=== PATIENT | male | born 1980 | race Caucasian/White ===

== ENCOUNTER 2016-07-16 20:11 | Emergency (ER) | payer OTHER ==
[~2016-07-16] VITALS: Ht 177.8 cm; Wt 99.0 kg
[2016-07-16 20:18] VITALS: Ht 177.8 cm; Wt 99.0 kg
[2016-07-16] MEDS ORDERED: HYDROCODONE/APAP (5/325) TAB PO ONE (21:30)
--- NOTE | 2016-07-16 21:57 | RADRPT ---
PROCEDURE: XR Ribs. CLINICAL INDICATION: Right upper rib pain. TECHNIQUE: Two views of the right ribs were obtained. COMPARISON: None. FINDINGS: No rib fracture or other focal lesion is identified. The underlying lungs are unremarkable, without pleural effusion or pneumothorax seen. RPTAT:HJJR IMPRESSION: Unremarkable right rib series. Physician Nasrin Date Time Electronically viewed and signed by Rodney Diehl Physician on 07/16/2016 21:57 /
[2016-07-16] MEDS ORDERED: TYL500 PO (22:30)
[2016-07-16 22:37] VITALS: BP 135/93; PULSE 80; RESP 20; TEMP 98.2
--- NOTE | 2016-07-18 06:20 | ERA ---
ER Documentation Chief Complaint Date/Time DATE: 07/18/16 TIME: 06:14 Chief Complaint fell from a horse 5 days ago, c/o right rib pain HPI This is a 36-year-old male is presenting 3 days status post trauma while horse riding. Patient was dragged behind a horse. Patient complains of right rib pain where he fell. Pain is worse with moving. Patient denies any bleeding, shortness of breath, chest pain related to exertion, fever, chills or sweats. Patient has taken Tylenol with minimal relief. There are no other associated manifestations. No trauma to any other areas of the body. Patient. There are no other complications at this time. ROS All systems reviewed and are negative except as per history of present illness. Medications Home Meds Active Scripts Acetaminophen* (Tylenol*) 500 Mg Tab, 500 MG PO Q4H Y for MILD PAIN LEVEL 1-3 for 10 Days, TAB Prov:DEMETRIO CARNEY PA-C 07/16/16 Allergies Allergies: Coded Allergies: No Known Drug Allergies (Verified Allergy, Unknown, 07/16/16) PMhx/Soc Medical and Surgical Hx: pt denies Medical Hx, pt denies Surgical Hx Hx Alcohol Use: Yes (social) Hx Substance Use: No Hx Tobacco Use: No Smoking Status: Never smoker Physical Exam Vitals Vital Signs Date Time Temp Pulse Resp B/P Pulse Ox O2 Delivery O2 Flow Rate FiO2 07/16/16 22:37 98.2 80 20 135/93 99 Room Air 07/16/16 20:18 98.2 89 20 133/84 97 Physical Exam Const: Well-appearing well-developed 36-year-old male presenting with his and kids. Head: Atraumatic Eyes: Normal Conjunctiva ENT: Normal External Ears, Nose and Mouth. Neck: Full range of motion..~ No meningismus. Resp: Clear to auscultation bilaterally Cardio: Regular rate and rhythm, no murmurs Abd: Soft, non tender, non distended. Normal bowel sounds Skin: Mild abrasion on the right side of the chest. No bruising noted. Equal chest expansion. Back: No midline or flank tenderness Ext: No cyanosis, or edema Neur: Awake and alert Psych: Normal Mood and Affect Results 24 hrs Current Medications Medications (Trade) Dose Ordered Sig/Ranjeet Route PRN Reason Start Time Stop Time Status Last Admin Dose Admin Acetaminophen/ Hydrocodone Bitart (Dawson (5/325)) 1 tab ONCE ONCE PO 07/16/16 21:30 07/16/16 21:31 DC 07/16/16 21:34 Procedures/MDM This is a 36-year-old female resenting status post trauma after falling off a horse as mentioned in the history and physical. Patient states that the pain is 7 out of 10. Patient was given Dawson in the ED with relief of symptoms. X- ray was taken of the ribs due to the history of trauma. X-ray of the ribs was read by the radiologist and read as unremarkable. At this time a very little suspicion for pneumothorax, hemothorax, ACS, PE, pneumonia. Most likely diagnosis at this time is pain secondary to trauma. Pain is reproduced with palpation. I will go ahead and prescribe the patient's acetaminophen on discharge for discomfort and have recommended the patient follow-up with primary care practitioner. At this time patient's vitals are stable and his current condition is work for discharge. Patient will be given discharge instructions with return precautions for Departure Diagnosis: Primary Impression: Contusion of rib on right side Qualified Code: S20.211A - Contusion of rib on right side, initial encounter Additional Impressions: Rib injury Rib pain Condition: Stable Patient Instructions: Rib Contusion Additional Instructions: Follow up with your PCP within the next 1-3 days for a more thorough evaluation and a possible referral to a specialist. Return the the emergency department immediately if symptoms worsen or change. If you have any questions regarding medications, ask your pharmacist or us before you leave. If any adverse reactions occur while taking your medications, discontinue the treatment and return to the emergency department immediately. Take your medications as directed, and complete the entire course of treatment. DEMETRIO CARNEY PA-C Jul 18, 2016 06:20
== END 2016-07-16 22:28 | disposition home or self-care (01) ==
LOC: FTE 20:11
DX: S20.211A Contusion of right front wall of thorax, initial encounter (principal); V80.010A Animal-rider injured by fall from or being thrown from horse in noncollision accident, initial encounter
CPT/HCPCS: 71100; Z7610